=== PATIENT | female | born 1960 | race Caucasian/White ===

== ENCOUNTER 2023-02-01 08:55 | Inpatient (IN) | payer MEDICAID, OTHER ==
[~2023-02-01] VITALS: Ht 157.5 cm; Wt 131.1 kg
[2023-02-01] VITALS (8 sets, daily range): O2SAT 93–99
[2023-02-01] MEDS ORDERED: ALBUTEROL FS 2.5 MG/3 ML VIAL.NEB ONE ×4 (09:13→23:55)
[2023-02-01] MEDS ORDERED: IPRATROPIUM NEB FS 0.5 MG/2.5 ML AMPUL.NEB ONE ×3 (09:13→23:55)
[2023-02-01] MEDS ORDERED: PIPERACI/TAZO 3.375GM/D5W 50ML PB IV ONE (09:21)
[2023-02-01] MEDS ORDERED: methylPREDNISolone SOD SUCC 125 MG/2ML VIAL ONE ×2 (09:21→12:00)
[2023-02-01] MEDS ORDERED: Magnesium 1GM/D5W 100ML PREMIX 100 ML IV ONE (09:21)
[2023-02-01] MEDS ORDERED: IPRATROPIUM NEB FS 0.5 MG/2.5 ML AMPUL.NEB NEB ONE (09:30)
[2023-02-01] MEDS ORDERED: PIPERACILLIN /TAZOBACTAM 3.375 G in IV D5W 50 ML IV ONE (09:30)
[2023-02-01] MEDS ORDERED: ALBUTEROL FS 2.5 MG/3 ML VIAL.NEB CONTNEB ONE (09:30)
[2023-02-01] MEDS ORDERED: Magnesium 1GM/D5W 100ML PREMIX 200 ML IV ONE (09:30)
[2023-02-01] MEDS ORDERED: methylPREDNISolone SOD SUCC 125 MG/2ML VIAL IV ONE (09:30)
[2023-02-01 09:44] LABS: BASOPHILS % (AUTO) 0.4 % (0.0-2.0); EOSINOPHILS # (AUTO) 0.4 K/uL (0.0-0.7); EOSINOPHILS % (AUTO) 6.4 % (0.0-6.0); HEMATOCRIT 39 % (33-45); HEMOGLOBIN 12.8 g/dL (11.5-14.8); LYMPHOCYTES # (AUTO) 1.4 K/uL (0.8-4.8); LYMPHOCYTES % (AUTO) 24.4 % (20.0-44.0); MEAN CORPUSCULAR HEMOGLOBIN 29 PG (26.0-33.0); MEAN CORPUSCULAR HGB CONC 33 g/dl (31.0-36.0); MEAN CORPUSCULAR VOLUME 88 fL (82-100); MONOCYTES # (AUTO) 0.4 K/uL (0.1-1.30); MONOCYTES % (AUTO) 6.1 % (2.0-12.0); NEUTROPHILS # (AUTO) 3.7 K/uL (1.8-8.9); NEUTROPHILS % (AUTO) 62.7 % (43.0-81.0); PLATELET COUNT (AUTO) 255 K/uL (150-450); RED BLOOD CELL COUNT(AUTO) 4.43 MIL/uL (4.0-5.2); RED CELL DISTRIBUTION WIDTH 13.8 % (11.5-15.0); WHITE BLOOD COUNT (AUTO) 5.9 K/uL (4.3-11.0)
[2023-02-01 10:06] LABS: LACTIC ACID 1.4 mmol/L (0.4-2.0)
[2023-02-01 10:21] LABS: ABG BASE EXCESS -0.4 mmol/L; ABG OXYGEN SATURATION 94.9 % (92.0-98.5); ABG PCO2 39.8 mmHg (35.0-45.0); ABG PH 7.403 (7.350-7.450); ABG TOTAL HEMOGLOBIN 13.4 G/dL (12.0-16.0); COHb 0.1 % (0.5-1.5); MetHb 0.2 % (0.0-1.5); O2Hb 94.6 % (94.0-97.0); SITE, ABG Right Radial
[2023-02-01] MEDS ORDERED: LIDO30AD10 TP (10:23)
[2023-02-01] MEDS ORDERED: AMLO10TA4 PO (10:23)
[2023-02-01] MEDS ORDERED: FOLI0.4T6 PO (10:23)
[2023-02-01] MEDS ORDERED: BISA10SU11 RC (10:23)
[2023-02-01] MEDS ORDERED: SENN-261 PO (10:23)
[2023-02-01] MEDS ORDERED: METH500T6 PO (10:23)
[2023-02-01] MEDS ORDERED: NA P133E RC (10:23)
[2023-02-01] MEDS ORDERED: FURO-145 PO (10:23)
[2023-02-01] MEDS ORDERED: LISI-768 PO (10:23)
[2023-02-01] MEDS ORDERED: MAGN400O6 PO (10:23)
[2023-02-01] MEDS ORDERED: GABA-532 PO (10:23)
[2023-02-01] MEDS ORDERED: DOCU-141 PO (10:23)
[2023-02-01] MEDS ORDERED: CLOT15CR27 TP (10:23)
[2023-02-01] MEDS ORDERED: TRAM50TA2 PO (10:23)
[2023-02-01] MEDS ORDERED: AZEL137S7 (10:23)
[2023-02-01] MEDS ORDERED: IPRA3AMP23 IH (10:23)
[2023-02-01] MEDS ORDERED: HYDR28.32 TP (10:23)
[2023-02-01] MEDS ORDERED: PANT40TA2 PO (10:23)
[2023-02-01] MEDS ORDERED: VANC1VIA4 IV (10:23)
[2023-02-01] MEDS ORDERED: BUDE10.2 IH (10:23)
[2023-02-01] MEDS ORDERED: ACET-868 PO (10:23)
[2023-02-01 10:30] LABS: ALANINE AMINOTRANSFERASE 20 U/L (12-78); ALBUMIN 3.4 g/dL (3.4-5.0); ALKALINE PHOSPHATASE 202 U/L (46-116); ASPARTATE AMINOTRANSFERASE 18 U/L (15-37); BILIRUBIN,DIRECT 0.1 mg/dL (0.0-0.2); BILIRUBIN,TOTAL 0.3 mg/dL (0.2-1.0); CALCIUM, SERUM 9.3 mg/dL (8.5-10.1); CARBON DIOXIDE 24 mmol/L (21-32); CHLORIDE 97 mmol/L (98-107); CREATININE 0.8 mg/dL (0.6-1.3); GLUCOSE 153 mg/dL (74-106); POTASSIUM 3.7 mmol/L (3.5-5.1); SODIUM SERUM 129 mmol/L (136-145); TOTAL PROTEIN, SERUM 8.5 g/dL (6.4-8.2); UREA NITROGEN, BLOOD 15 mg/dL (7-18)
[2023-02-01] MEDS ORDERED: BISACODYL SUPP (10 MG) 10 MG/SUPP.RECT SUPP.RECT RC PRN (11:30)
[2023-02-01] MEDS ORDERED: ONDANSETRON HCL/PF 4 MG/2 ML VIAL IVP PRN (11:30)
[2023-02-01] MEDS ORDERED: ALBUTEROL FS 2.5 MG/0.5 ML VIAL.NEB NEB PRN (11:30)
[2023-02-01] MEDS ORDERED: TRAMADOL HCL 50 MG TABLET PO PRN (11:30)
[2023-02-01] MEDS ORDERED: Z GUARD REMEDY 4 OZ OINT TP PRN (11:30)
[2023-02-01] MEDS ORDERED: NA PHOS,M-B/NA PHOS,DI-BA 1 EA ENEMA RC PRN (11:30)
[2023-02-01] MEDS ORDERED: ACETAMINOPHEN 325 MG TABLET PO PRN (11:30)
[2023-02-01] MEDS ORDERED: MAG HYDROX/AL HYDROX/SIMETH 30 ML UDC PO PRN (11:30)
[2023-02-01] MEDS ORDERED: MAGNESIUM HYDROXIDE 30 ML UDC PO PRN ×2 (11:30)
[2023-02-01] MEDS ORDERED: ZOLPIDEM TARTRATE 5 MG TABLET PO PRN (11:30)
[2023-02-01] MEDS ORDERED: FUROSEMIDE 40 MG TABLET ONE (12:00)
[2023-02-01] MEDS ORDERED: ENOXAPARIN SODIUM 40 MG/0.4 ML DISP.SYRIN SQ ONE (12:00)
[2023-02-01] MEDS ORDERED: METHOCARBAMOL (500MG) 500 MG TABLET ONE ×2 (12:01→17:03)
[2023-02-01] MEDS ORDERED: GABAPENTIN 300 MG CAPSULE ONE ×2 (12:01→17:03)
[2023-02-01] MEDS: FUROSEMIDE 40 MG/4 ML VIAL IV SCH (12:13)
[2023-02-01] MEDS: METHOCARBAMOL (500MG) 500 MG TABLET PO SCH ×2 (12:13→17:07)
[2023-02-01] MEDS: methylPREDNISolone SOD SUCC 125 MG/2ML VIAL IV SCH ×2 (12:13→21:00)
[2023-02-01] MEDS: GABAPENTIN 100 MG CAPSULE PO SCH ×2 (12:13→17:07)
[2023-02-01] MEDS: ENOXAPARIN SODIUM 40 MG/0.4 ML DISP.SYRIN SQ SCH (12:16)
[2023-02-01] MEDS ORDERED: BUDESONIDE RESPULE INH 0.5 MG/2 ML AMPUL.NEB IH SCH ×2 (12:16→15:00)
[2023-02-01] MEDS: ZOSYN IVPB 3.375 G in IV D5W 50ml IV SCH ×2 (12:25→18:05)
[2023-02-01 13:15] LABS: APPEARANCE,URINE CLEAR (CLEAR); BILIRUBIN,URINE NEGATIVE (NEGATIVE); BLOOD, URINE TRACE-INTA Ery/uL (NEGATIVE); COLOR,URINE YELLOW (YELLOW); KETONES,URINE NEGATIVE (NEGATIVE); LEUKOCYTE ESTERASE ,URINE NEGATIVE (NEGATIVE); NITRITE, URINE POSITIVE (NEGATIVE); PH,URINE 6.5 (5.0-8.0); PROTEIN,URINE NEGATIVE (NEGATIVE); UGLUCOSE NEGATIVE (NEGATIVE); UROBILINOGEN,URINE 0.2 EU/dL (0.2)
[2023-02-01 13:19] LABS: ADD URINE CULTURE YES; BACTERIA,URINE Few /HPF (None Seen); RBC,URINE 0-2 /HPF (0-2); SQUAMOUS EPITHELIAL CELL,UR Rare /HPF (None Seen); WBC,URINE 0-2 /HPF (0-3)
[2023-02-01] MEDS: ALBUTEROL FS 2.5 MG/3 ML VIAL.NEB NEB SCH ×2 (13:25→19:31)
[2023-02-01] MEDS: IPRATROPIUM NEB FS 0.5 MG/2.5 ML AMPUL.NEB NEB SCH ×2 (16:20→19:31)
[2023-02-01] MEDS ORDERED: DOCUSATE SODIUM 100 MG CAPSULE PO ONE (16:38)
[2023-02-01] MEDS: DOCUSATE SODIUM 100 MG CAPSULE PO SCH (16:43)
[2023-02-01] MEDS ORDERED: methylPREDNISolone SOD SUCC 40 MG/ML VIAL ONE (21:41)
[2023-02-01] MEDS ORDERED: SENNOSIDES 8.6 MG TABLET ONE (21:41)
[2023-02-01] MEDS: SENNOSIDES 8.6 MG TABLET PO SCH (21:48)
[2023-02-02] VITALS (15 sets, daily range): BP systolic 127; BP diastolic 66; TEMP 97.9; O2SAT 89–100
[2023-02-02] MEDS: ALBUTEROL FS 2.5 MG/3 ML VIAL.NEB NEB SCH ×4 (00:04→19:55)
[2023-02-02] MEDS: IPRATROPIUM NEB FS 0.5 MG/2.5 ML AMPUL.NEB NEB SCH ×7 (00:04→23:57)
[2023-02-02] MEDS ORDERED: PIPERACI/TAZO 3.375GM/D5W 50ML PB IV ONE ×2 (00:21→13:26)
[2023-02-02] MEDS ORDERED: IPRATROPIUM NEB FS 0.5 MG/2.5 ML AMPUL.NEB ONE ×4 (04:03→14:53)
[2023-02-02] MEDS: methylPREDNISolone SOD SUCC 125 MG/2ML VIAL IV SCH ×3 (05:00→20:21)
[2023-02-02] MEDS ORDERED: methylPREDNISolone SOD SUCC 40 MG/ML VIAL ONE (05:34)
[2023-02-02] MEDS: ZOSYN IVPB 3.375 G in IV D5W 50ml IV SCH ×6 (06:04→23:32)
[2023-02-02] MEDS ORDERED: PANTOPRAZOLE 40 MG TABLET.DR PO ONE (07:41)
[2023-02-02] MEDS: PANTOPRAZOLE 40 MG TABLET.DR PO SCH (07:44)
[2023-02-02 07:54] LABS: HEMATOCRIT 37 % (33-45); HEMOGLOBIN 12.4 g/dL (11.5-14.8); LYMPHOCYTES # (AUTO) 0.9 K/uL (0.8-4.8); LYMPHOCYTES % (AUTO) 12.5 % (20.0-44.0); MEAN CORPUSCULAR HEMOGLOBIN 29 PG (26.0-33.0); MEAN CORPUSCULAR HGB CONC 33 g/dl (31.0-36.0); MEAN CORPUSCULAR VOLUME 87 fL (82-100); MONOCYTES # (AUTO) 0.2 K/uL (0.1-1.30); MONOCYTES % (AUTO) 2.4 % (2.0-12.0); NEUTROPHILS % (AUTO) 85.1 % (43.0-81.0); PLATELET COUNT (AUTO) 280 K/uL (150-450); RED BLOOD CELL COUNT(AUTO) 4.31 MIL/uL (4.0-5.2); RED CELL DISTRIBUTION WIDTH 13.5 % (11.5-15.0); WHITE BLOOD COUNT (AUTO) 7.1 K/uL (4.3-11.0)
[2023-02-02] MEDS ORDERED: ALBUTEROL FS 2.5 MG/3 ML VIAL.NEB ONE ×2 (08:04→13:40)
[2023-02-02 08:27] LABS: CALCIUM, SERUM 9.4 mg/dL (8.5-10.1); CREATININE 0.7 mg/dL (0.6-1.3); MAGNESIUM 2.3 mg/dL (1.8-2.4); PHOSPHORUS 4.1 mg/dL (2.5-4.9); POTASSIUM 3.8 mmol/L (3.5-5.1)
[2023-02-02] MEDS: METHOCARBAMOL (500MG) 500 MG TABLET PO SCH ×3 (09:00→17:48)
[2023-02-02] MEDS ORDERED: FUROSEMIDE 40 MG/4 ML VIAL ONE (09:52)
[2023-02-02] MEDS ORDERED: DOCUSATE SODIUM LIQ 100 MG/10 ML UDC ONE (09:52)
[2023-02-02] MEDS ORDERED: GABAPENTIN 300 MG CAPSULE ONE ×3 (09:52→17:26)
[2023-02-02] MEDS ORDERED: DOCUSATE SODIUM 100 MG CAPSULE PO ONE ×2 (09:53→17:25)
[2023-02-02] MEDS ORDERED: AMLODIPINE BESYLATE 10 MG TABLET ONE (09:53)
[2023-02-02] MEDS ORDERED: METHOCARBAMOL (500MG) 500 MG TABLET ONE ×3 (09:55→17:26)
[2023-02-02] MEDS: CLOTRIMAZOLE 1% 15 GM TUBE TP SCH (09:56)
[2023-02-02] MEDS ORDERED: LISINOPRIL (20MG) 20 MG TABLET ONE (09:56)
[2023-02-02] MEDS ORDERED: LIDOCAINE 5% (PATCH) 1 EA PATCH TP ONE (09:58)
[2023-02-02] MEDS: GABAPENTIN 100 MG CAPSULE PO SCH (09:58)
[2023-02-02] MEDS: AMLODIPINE BESYLATE 10 MG TABLET PO SCH (09:59)
[2023-02-02] MEDS: DOCUSATE SODIUM 100 MG CAPSULE PO SCH ×2 (09:59→17:48)
[2023-02-02] MEDS: LISINOPRIL (20MG) 20 MG TABLET PO SCH (10:00)
[2023-02-02] MEDS: FUROSEMIDE 40 MG/4 ML VIAL IV SCH (10:02)
[2023-02-02] MEDS: LIDOCAINE 5% (PATCH) 1 EA PATCH TP SCH (10:12)
[2023-02-02] MEDS: ENOXAPARIN SODIUM 40 MG/0.4 ML DISP.SYRIN SQ SCH (11:30)
[2023-02-02] MEDS ORDERED: CLONIDINE HCL 0.1 MG TABLET PO PRN (12:00)
[2023-02-02] MEDS: GABAPENTIN 300 MG CAPSULE PO SCH ×2 (13:00→17:48)
[2023-02-02] MEDS ORDERED: methylPREDNISolone SOD SUCC 125 MG/2ML VIAL ONE (13:26)
[2023-02-02] MEDS ORDERED: ENOXAPARIN SODIUM 40 MG/0.4 ML DISP.SYRIN SQ ONE (13:26)
[2023-02-02] MEDS: SENNOSIDES 8.6 MG TABLET PO SCH (21:13)
[2023-02-03] VITALS (15 sets, daily range): BP systolic 121–140; BP diastolic 62–87; TEMP 97.6–97.7; O2SAT 92–100
[2023-02-03] MEDS: ALBUTEROL FS 2.5 MG/3 ML VIAL.NEB NEB SCH ×4 (00:44→19:22)
[2023-02-03] MEDS: IPRATROPIUM NEB FS 0.5 MG/2.5 ML AMPUL.NEB NEB SCH ×6 (03:30→22:32)
[2023-02-03] MEDS: methylPREDNISolone SOD SUCC 125 MG/2ML VIAL IV SCH ×3 (04:21→20:18)
[2023-02-03] MEDS: ZOSYN IVPB 3.375 G in IV D5W 50ml IV SCH ×4 (05:11→23:27)
[2023-02-03 07:26] LABS: BASOPHILS % (AUTO) 0.1 % (0.0-2.0); HEMATOCRIT 36 % (33-45); HEMOGLOBIN 12.2 g/dL (11.5-14.8); LYMPHOCYTES # (AUTO) 1.1 K/uL (0.8-4.8); LYMPHOCYTES % (AUTO) 11.3 % (20.0-44.0); MEAN CORPUSCULAR HEMOGLOBIN 29 PG (26.0-33.0); MEAN CORPUSCULAR HGB CONC 34 g/dl (31.0-36.0); MEAN CORPUSCULAR VOLUME 87 fL (82-100); MONOCYTES # (AUTO) 0.2 K/uL (0.1-1.30); MONOCYTES % (AUTO) 2.5 % (2.0-12.0); NEUTROPHILS % (AUTO) 86.1 % (43.0-81.0); PLATELET COUNT (AUTO) 291 K/uL (150-450); RED BLOOD CELL COUNT(AUTO) 4.17 MIL/uL (4.0-5.2); RED CELL DISTRIBUTION WIDTH 13.4 % (11.5-15.0); WHITE BLOOD COUNT (AUTO) 9.3 K/uL (4.3-11.0)
[2023-02-03 08:13] LABS: CALCIUM, SERUM 9.1 mg/dL (8.5-10.1); MAGNESIUM 2.5 mg/dL (1.8-2.4); PHOSPHORUS 3.9 mg/dL (2.5-4.9); POTASSIUM 3.9 mmol/L (3.5-5.1)
[2023-02-03] MEDS: LIDOCAINE 5% (PATCH) 1 EA PATCH TP SCH (08:45)
[2023-02-03] MEDS: DOCUSATE SODIUM 100 MG CAPSULE PO SCH ×3 (08:46→16:23)
[2023-02-03] MEDS: METHOCARBAMOL (500MG) 500 MG TABLET PO SCH ×3 (08:46→16:12)
[2023-02-03] MEDS: PANTOPRAZOLE 40 MG TABLET.DR PO SCH (08:46)
[2023-02-03] MEDS: GABAPENTIN 300 MG CAPSULE PO SCH ×3 (08:46→16:11)
[2023-02-03] MEDS: LISINOPRIL (20MG) 20 MG TABLET PO SCH (08:47)
[2023-02-03] MEDS: AMLODIPINE BESYLATE 10 MG TABLET PO SCH (08:48)
[2023-02-03] MEDS: CLOTRIMAZOLE 1% 15 GM TUBE TP SCH (08:50)
[2023-02-03] MEDS: ENOXAPARIN SODIUM 40 MG/0.4 ML DISP.SYRIN SQ SCH (10:56)
[2023-02-03] MEDS: SENNOSIDES 8.6 MG TABLET PO SCH (20:52)
[2023-02-04] VITALS (13 sets, daily range): BP systolic 121–151; BP diastolic 62–83; TEMP 97–98; O2SAT 95–99
[2023-02-04] MEDS: ALBUTEROL FS 2.5 MG/3 ML VIAL.NEB NEB SCH ×4 (00:48→20:05)
[2023-02-04] MEDS: IPRATROPIUM NEB FS 0.5 MG/2.5 ML AMPUL.NEB NEB SCH ×5 (02:30→20:05)
[2023-02-04] MEDS: methylPREDNISolone SOD SUCC 125 MG/2ML VIAL IV SCH ×2 (04:51→16:14)
[2023-02-04] MEDS: ZOSYN IVPB 3.375 G in IV D5W 50ml IV SCH ×3 (05:46→17:00)
[2023-02-04 07:36] LABS: CALCIUM, SERUM 9.2 mg/dL (8.5-10.1); CREATININE 0.9 mg/dL (0.6-1.3); POTASSIUM 4.2 mmol/L (3.5-5.1)
[2023-02-04 07:41] LABS: HEMATOCRIT 36 % (33-45); LYMPHOCYTES # (AUTO) 0.9 K/uL (0.8-4.8); LYMPHOCYTES % (AUTO) 12.5 % (20.0-44.0); MEAN CORPUSCULAR HEMOGLOBIN 29 PG (26.0-33.0); MEAN CORPUSCULAR HGB CONC 33 g/dl (31.0-36.0); MEAN CORPUSCULAR VOLUME 87 fL (82-100); MONOCYTES # (AUTO) 0.2 K/uL (0.1-1.30); MONOCYTES % (AUTO) 2.8 % (2.0-12.0); NEUTROPHILS # (AUTO) 6.2 K/uL (1.8-8.9); NEUTROPHILS % (AUTO) 84.7 % (43.0-81.0); PLATELET COUNT (AUTO) 273 K/uL (150-450); RED BLOOD CELL COUNT(AUTO) 4.15 MIL/uL (4.0-5.2); RED CELL DISTRIBUTION WIDTH 13.2 % (11.5-15.0); WHITE BLOOD COUNT (AUTO) 7.3 K/uL (4.3-11.0)
[2023-02-04] MEDS: GABAPENTIN 300 MG CAPSULE PO SCH ×3 (08:26→16:14)
[2023-02-04] MEDS: AMLODIPINE BESYLATE 10 MG TABLET PO SCH (08:27)
[2023-02-04] MEDS: PANTOPRAZOLE 40 MG TABLET.DR PO SCH (08:27)
[2023-02-04] MEDS: DOCUSATE SODIUM 100 MG CAPSULE PO SCH ×2 (08:27→16:14)
[2023-02-04] MEDS: METHOCARBAMOL (500MG) 500 MG TABLET PO SCH ×3 (08:27→16:14)
[2023-02-04] MEDS: LISINOPRIL (20MG) 20 MG TABLET PO SCH (08:27)
[2023-02-04] MEDS: CLOTRIMAZOLE 1% 15 GM TUBE TP SCH (08:28)
[2023-02-04] MEDS: LIDOCAINE 5% (PATCH) 1 EA PATCH TP SCH (08:28)
[2023-02-04] MEDS: ENOXAPARIN SODIUM 40 MG/0.4 ML DISP.SYRIN SQ SCH (10:42)
[2023-02-04] MEDS: TRIAMCINOLONE ACETONIDE 0.1% CR 15 GM TUBE TP SCH ×2 (11:02→22:04)
[2023-02-04] MEDS: POLYVINYL ALCOHOL 15 ML BOTTLE EACHEYE SCH ×2 (13:07→22:04)
[2023-02-04] MEDS: SENNOSIDES 8.6 MG TABLET PO SCH ×2 (22:00→22:04)
[2023-02-05] VITALS (12 sets, daily range): BP systolic 122–150; BP diastolic 66–78; TEMP 97.6–98.9; O2SAT 95–100
[2023-02-05] MEDS: ZOSYN IVPB 3.375 G in IV D5W 50ml IV SCH ×5 (00:11→23:34)
[2023-02-05] MEDS: ALBUTEROL FS 2.5 MG/3 ML VIAL.NEB NEB SCH ×7 (00:32→23:48)
[2023-02-05] MEDS: IPRATROPIUM NEB FS 0.5 MG/2.5 ML AMPUL.NEB NEB SCH ×7 (00:32→23:48)
[2023-02-05] MEDS ORDERED: ACETYLCYSTEINE 10% SOLN 400 MG/4 ML VIAL NEB PRN (03:30)
[2023-02-05] MEDS: POLYVINYL ALCOHOL 15 ML BOTTLE EACHEYE SCH ×3 (05:09→20:48)
[2023-02-05] MEDS: PANTOPRAZOLE 40 MG TABLET.DR PO SCH (08:51)
[2023-02-05] MEDS: methylPREDNISolone SOD SUCC 125 MG/2ML VIAL IV SCH (08:52)
[2023-02-05] MEDS: LIDOCAINE 5% (PATCH) 1 EA PATCH TP SCH (08:52)
[2023-02-05] MEDS: TRIAMCINOLONE ACETONIDE 0.1% CR 15 GM TUBE TP SCH ×2 (08:53→20:48)
[2023-02-05] MEDS: CLOTRIMAZOLE 1% 15 GM TUBE TP SCH (08:53)
[2023-02-05] MEDS: METHOCARBAMOL (500MG) 500 MG TABLET PO SCH ×3 (08:54→17:01)
[2023-02-05] MEDS: LISINOPRIL (20MG) 20 MG TABLET PO SCH (08:54)
[2023-02-05] MEDS: DOCUSATE SODIUM 100 MG CAPSULE PO SCH ×2 (08:55→17:01)
[2023-02-05] MEDS: GABAPENTIN 300 MG CAPSULE PO SCH ×3 (08:55→17:01)
[2023-02-05] MEDS: AMLODIPINE BESYLATE 10 MG TABLET PO SCH (08:55)
[2023-02-05] MEDS ORDERED: TEMAZEPAM 7.5 MG CAPSULE PO PRN (10:00)
[2023-02-05] MEDS ORDERED: FUROSEMIDE 20 MG/2 ML VIAL IV ONE (10:00)
[2023-02-05] MEDS: ENOXAPARIN SODIUM 40 MG/0.4 ML DISP.SYRIN SQ SCH (11:01)
[2023-02-05] MEDS: SENNOSIDES 8.6 MG TABLET PO SCH (21:00)
[2023-02-06] VITALS (7 sets, daily range): BP systolic 128–130; BP diastolic 60–80; TEMP 97.9–98.9; O2SAT 95–100
[2023-02-06] MEDS: IPRATROPIUM NEB FS 0.5 MG/2.5 ML AMPUL.NEB NEB SCH ×4 (03:30→16:15)
[2023-02-06] MEDS: ALBUTEROL FS 2.5 MG/3 ML VIAL.NEB NEB SCH ×4 (03:30→16:15)
[2023-02-06] MEDS: POLYVINYL ALCOHOL 15 ML BOTTLE EACHEYE SCH ×2 (04:17→12:19)
[2023-02-06] MEDS: ZOSYN IVPB 3.375 G in IV D5W 50ml IV SCH ×2 (05:00→11:37)
[2023-02-06 06:54] LABS: EOSINOPHILS # (AUTO) 0.1 K/uL (0.0-0.7); EOSINOPHILS % (AUTO) 1.5 % (0.0-6.0); HEMATOCRIT 37 % (33-45); HEMOGLOBIN 12.4 g/dL (11.5-14.8); LYMPHOCYTES # (AUTO) 3.1 K/uL (0.8-4.8); LYMPHOCYTES % (AUTO) 31.2 % (20.0-44.0); MEAN CORPUSCULAR HEMOGLOBIN 29 PG (26.0-33.0); MEAN CORPUSCULAR HGB CONC 33 g/dl (31.0-36.0); MEAN CORPUSCULAR VOLUME 87 fL (82-100); MONOCYTES # (AUTO) 0.7 K/uL (0.1-1.30); MONOCYTES % (AUTO) 7.3 % (2.0-12.0); NEUTROPHILS # (AUTO) 5.9 K/uL (1.8-8.9); PLATELET COUNT (AUTO) 283 K/uL (150-450); RED CELL DISTRIBUTION WIDTH 13.3 % (11.5-15.0); WHITE BLOOD COUNT (AUTO) 9.8 K/uL (4.3-11.0)
[2023-02-06 07:11] LABS: CREATININE 0.8 mg/dL (0.6-1.3); POTASSIUM 3.8 mmol/L (3.5-5.1)
[2023-02-06] MEDS: DOCUSATE SODIUM 100 MG CAPSULE PO SCH ×2 (08:29→16:10)
[2023-02-06] MEDS: GABAPENTIN 300 MG CAPSULE PO SCH ×3 (08:29→16:10)
[2023-02-06] MEDS: PANTOPRAZOLE 40 MG TABLET.DR PO SCH (08:29)
[2023-02-06] MEDS: LISINOPRIL (20MG) 20 MG TABLET PO SCH (08:30)
[2023-02-06] MEDS: LIDOCAINE 5% (PATCH) 1 EA PATCH TP SCH (08:30)
[2023-02-06] MEDS: AMLODIPINE BESYLATE 10 MG TABLET PO SCH (08:30)
[2023-02-06] MEDS: TRIAMCINOLONE ACETONIDE 0.1% CR 15 GM TUBE TP SCH (08:32)
[2023-02-06] MEDS: METHOCARBAMOL (500MG) 500 MG TABLET PO SCH ×3 (08:32→16:10)
[2023-02-06] MEDS: CLOTRIMAZOLE 1% 15 GM TUBE TP SCH (08:32)
[2023-02-06] MEDS ORDERED: predniSONE 20 MG TABLET PO SCH (09:00)
[2023-02-06] MEDS ORDERED: PRED50TA PO (09:01)
[2023-02-06] MEDS ORDERED: FUROSEMIDE 20 MG/2 ML VIAL IV SCH (09:30)
[2023-02-06] MEDS: ENOXAPARIN SODIUM 40 MG/0.4 ML DISP.SYRIN SQ SCH (11:36)
== END 2023-02-06 17:11 | DRG 145 ==
LOC: ER 08:55 → TRANSITION 10:18 → TELE1 02-02 19:15 → MEDSG1 02-02 19:42
PROVIDERS: ADMIT Internal Medicine; ATTEND Internal Medicine
DX: J20.5 Acute bronchitis due to respiratory syncytial virus (principal); J96.01 Acute respiratory failure with hypoxia; J44.1 Chronic obstructive pulmonary disease with (acute) exacerbation; J98.11 Atelectasis; J90 Pleural effusion, not elsewhere classified; E87.1 Hypo-osmolality and hyponatremia; E87.70 Fluid overload, unspecified; K86.1 Other chronic pancreatitis; K21.9 Gastro-esophageal reflux disease without esophagitis; L03.114 Cellulitis of left upper limb; Z20.822 Contact with and (suspected) exposure to COVID-19; I42.9 Cardiomyopathy, unspecified; I10 Essential (primary) hypertension; G62.9 Polyneuropathy, unspecified; Z87.81 Personal history of (healed) traumatic fracture; Z88.5 Allergy status to narcotic agent; Z79.51 Long term (current) use of inhaled steroids; Z79.899 Other long term (current) drug therapy; E66.2 Morbid (severe) obesity with alveolar hypoventilation; G89.29 Other chronic pain; L30.9 Dermatitis, unspecified; R73.9 Hyperglycemia, unspecified
CPT/HCPCS: 36415; 36600; 71045-TC; 80048-TC; 80076-TC; 80202-TC; 81001; 82803-TC; 82962-TC; 83605-TC; 83735-TC; 83880; 84100-TC; 84484-TC; 85025-TC; 87040-TC; 87086-TC; 93307-TC; 93971-TC; 94799-TC; 97116-TC; 97530-TC; A4223; A6403; G0378; J1650; J1940; J2543; J2920; J2930; J3475; J7050; J7060